=== PATIENT | male | born 1975 | race Two or more races ===

== ENCOUNTER → 2017-08-26 | Emergency (ER) | payer OTHER ==
[~2017-08-26] MED LIST: ONDANSETRON DISINTEGRATING 4 MG TAB PO ONE
[2017-08-26 12:43] VITALS: RESP 18; TEMP 98
--- NOTE | 2017-08-26 12:58 | EDPHY ---
H & P Time Seen by Provider: 08/26/17 12:44 HPI/ROS: CHIEF COMPLAINT: Nausea, fatigue HISTORY OF PRESENT ILLNESS: 42-year-old male presents with nausea and fatigue. 1 week ago, he developed a runny nose and cough, associated with myalgias and a subjective fever. Also associated with excessive fatigue and lack of appetite. The fever resolved 2 days ago, but he continues to feel excessively fatigued and is sleeping much of the time. Associated with a mild headache now and nausea. Cough is resolving. Denies abdominal pain. REVIEW OF SYSTEMS: Eyes: No drainage Respiratory: no shortness of breath Cardiac: No chest pain Genitourinary: no dysuria Skin: No rash Psychiatric: No depression Past Medical/Surgical History: Denies Social History: Smoking Status: Never smoked Physical Exam: General Appearance: Alert, nontoxic-appearing Eyes: Pupils equal and round, no conjunctival injection ENT, Mouth: Mucous membranes moist, no pharyngeal erythema Neck: Normal inspection Respiratory: Lungs are clear to auscultation Cardiovascular: Regular rate and rhythm Gastrointestinal: Abdomen is soft and nontender Neurological: A&O, nonfocal, normal gait Skin: Warm and dry Extremities: Normal inspection Psychiatric: Mood and affect normal Constitutional: Initial Vital Signs Temperature (C) 36.6 C 08/26/17 12:40 Heart Rate 77 08/26/17 12:40 Respiratory Rate 18 08/26/17 12:40 Blood Pressure 121/66 H 08/26/17 12:40 O2 Sat (%) 97 08/26/17 12:40 O2 Delivery Mode Room Air Allergies/Adverse Reactions: No Known Allergies Allergy (Unverified 08/26/17 12:56) Home Medications: Medication Instructions Recorded Ondansetron Odt [Zofran Odt 4 mg 4 mg PO Q4 PRN #6 tab 08/26/17 (*)] Medical Decision Making ED Course/Re-evaluation: This patient presents with influenza like symptoms during an influenza epidemic. He has been symptomatic for 1 week and is previously healthy; Tamiflu is not indicated. There is no evidence of pneumonia or other bacterial infection. Differential Diagnosis: Differential diagnosis includes but is not limited to pneumonia, otitis media, peritonsillar abscess, retropharyngeal abscess, meningitis. Departure - Departure Disposition: Home, Routine, Self-Care Clinical Impression: Influenza Condition: Good Instructions: Influenza (ED) Additional Instructions: Drink plenty of fluids. You should start to feel better in the next few days. Return for worsening cough, shortness of breath, persistent abdominal pain, or any concerns. Take Tylenol 650mg every 4 hours as needed for achiness and fever. Referrals: [facility],. [Clinic] - 3-4 days, if not improved Prescriptions: Ondansetron Odt [Zofran Odt 4 mg (*)] 4 mg PO Q4 PRN #6 tab PRN Reason: Nausea
[2017-08-26 13:21] VITALS: BP 122/62; PULSE 74; O2SAT 94
== END | disposition home or self-care (01) ==
LOC: CED 12:30
DX: J11.1 Influenza due to unidentified influenza virus with other respiratory manifestations (principal)